=== PATIENT | male | born 1970 | race Caucasian/White ===

== ENCOUNTER 2018-04-16 09:40 | Emergency (ER) | payer OTHER, SELFPAY ==
[2018-04-16 09:48] VITALS: BP 122/80; PULSE 76; RESP 14; TEMP 36.9; O2SAT 98
--- NOTE | 2018-04-16 10:18 | ED.URI ---
HPI - URI/Sore Throat General Chief Complaint: Upper Respiratory Symptoms Stated Complaint: congestion,sinus pressure Time Seen by Provider: 04/16/18 10:09 Source: patient Mode of arrival: ambulatory Limitations: no limitations History of Present Illness HPI Narrative: 47-year-old male here for evaluation approximately 2 weeks of upper respiratory like symptoms to include sinus pressure. He has been taking NyQuil and DayQuil without any improvement. Occasionally takes Claritin. Does have tenderness to palpation over his maxillary sinuses. Does have a cough but nonproductive. No fevers. Related Data Home Medications Medication Instructions Recorded Confirmed lisinopril 20 mg PO DAILY 04/16/18 04/16/18 Previous Rx's Medication Instructions Recorded amoxicillin 500 mg PO BID 5 Days #10 cap 04/16/18 fluticasone [Flonase Allergy 1 spray NASAL DAILY #16 gram 04/16/18 Relief] loratadine [Claritin] 10 mg PO DAILY #30 tab 04/16/18 Allergies Allergy/AdvReac Type Severity Reaction Status Date / Time itraconazole [From Sporanox] Allergy Severe Anaphylaxis Verified 04/16/18 09:51 Review of Systems Constitutional Denies fever(s) and Denies headache(s) ENT Ears, Nose, Mouth, and Throat: Denies dizziness, Denies headache(s), Reports sinus pain, Reports sinus pressure, Denies sore throat, Denies throat swelling and Denies tongue swelling Cardiovascular Denies chest pain and Denies dyspnea Respiratory Reports cough and Denies dyspnea Gastrointestinal Gastrointestinal: Denies abdominal pain Integumentary/Breasts Denies lesions and Denies rash Neurologic Denies dizziness and Denies headache(s) Hematologic/Lymphatic Denies easy bleeding and Denies easy bruising Allergic/Immunologic Denies throat swelling and Denies tongue swelling FORMERLY [facility] Medical History Healthy adult (Acute) Surgical History No pertinent past surgical history (Acute) Social History marital status: Smoking Status: Never smoker Exam Initial Vital Signs Initial Vital Signs: Vital Signs Temperature 98.4 F 04/16/18 09:48 Pulse Rate 76 04/16/18 09:48 Respiratory Rate 14 04/16/18 09:48 Blood Pressure 122/80 04/16/18 09:48 Pulse Oximetry 98 04/16/18 09:48 Const General: cooperative, healthy appearing, comfortable, well developed, well groomed and No acute distress Orientation: alert, awake and oriented x3 HENMT Head: normal to inspection, normocephalic and atraumatic Ears: TM's normal bilaterally Nose: external nose normal Face and sinus: sinuses tender (Tenderness to palpation bilateral maxillary sinus with right greater than left) Neck Lymphatic: No lymphadenopathy Chest Chest: normal inspection of the chest Resp Effort & Inspection: normal respiratory effort Auscultation: clear to auscultation bilaterally Cardio Rate: regular rate Rhythm: regular rhythm Skin Lesions: no lesions Rashes: no rashes Neuro General: alert, awake and oriented x3 Extrem General: normal to inspection and capillary refill normal Psych Appearance: grossly normal and well kempt Course Vital Signs - 8 hr 04/16/18 09:48 04/16/18 11:23 Temperature 98.4 F Pulse Rate 76 79 Respiratory Rate 14 12 Blood Pressure 122/80 Blood Pressure [Right Arm] 127/79 Pulse Oximetry 98 97 MDM - URI/Sore Throat MDM Narrative Medical decision making narrative: Patient without respiratory distress. Lungs clear. Afebrile. Does have tenderness palpation bilateral maxillary sinuses. Occasionally takes decongestants. A long discussion with the patient regarding his symptoms. Informed him that most the time sinusitis is caused by viruses and not bacteria. Informed the patient that my recommendation is that he started himself on a daily decongestant such as Claritin and Flonase to see if this does not improve his symptoms. Will also give a prescription for antibiotics of his symptoms do not improve or worsen in the next several days/week he can start taking the antibiotics. Patient expressed understanding and agreement with plan. Discharge Plan Departure Patient Disposition: Home Clinical Impression: Sinusitis Discharge Date/Time: 04/16/18 11:44 Interventions: ED Discharge Assessment Last Done: 04/16/18 11:43 Instructions: Sinusitis (Alternative Therapy), DI for Sinusitis Activity Restrictions/Additional Instructions: Recommend that you use the decongestants for the next several days likely discussed. If your symptoms do not improve or worsen then start taking the antibiotics. Return to the emergency department for any new or worsening symptoms Prescriptions: New fluticasone [Flonase Allergy Relief] 50 mcg/actuation spray,suspension 1 spray NASAL DAILY Qty: 16 RF: 0 loratadine [Claritin] 10 mg tablet 10 mg PO DAILY Qty: 30 RF: 0 amoxicillin 500 mg capsule 500 mg PO BID 5 Days Qty: 10 RF: 0 No Action lisinopril 20 mg Tablet 20 mg PO DAILY RF: 0
[2018-04-16 11:23] VITALS: BP 127/79; PULSE 79; RESP 12; O2SAT 97
== END 2018-04-16 11:44 | disposition home or self-care (01) ==
PROVIDERS: Emergency Provider Emergency Medicine
DX: J32.9 Chronic sinusitis, unspecified (principal)
CPT/HCPCS: 99282

== ENCOUNTER 2019-01-02 14:59 | Emergency (ER) | payer OTHER, SELFPAY ==
[2019-01-02 15:09] VITALS: BP 141/89; PULSE 69; RESP 14; TEMP 36.1; O2SAT 97
--- NOTE | 2019-01-02 15:28 | ED.WOUNDLAC ---
HPI - Wound/Laceration General Chief Complaint: Wound/Laceration Stated Complaint: hit head, laceration Time Seen by Provider: 01/02/19 15:09 Source: patient Mode of arrival: ambulatory Limitations: no limitations History of Present Illness HPI narrative: 48M non smoker, Td up to date presents with a scalp laceration started just prior to arrival. He hit head, no LOC, no fever or chills. No alcohol or street drugs. No blood thinners. Onset (ago): minute(s) Location: scalp Patient tetanus UTD: Yes Context: accidental Associated symptoms: none Related Data Home Medications Medication Instructions Recorded Confirmed lisinopril 20 mg PO DAILY 04/16/18 08/04/18 Previous Rx's Medication Instructions Recorded fluticasone propionate [Flonase 1 spray NASAL DAILY #16 gram 04/16/18 Allergy Relief] loratadine [Claritin] 10 mg PO DAILY #30 tab 04/16/18 Allergies Allergy/AdvReac Type Severity Reaction Status Date / Time itraconazole [From Sporanox] Allergy Severe Anaphylaxis Verified 08/04/18 09:23 Review of Systems Constitutional Denies chills, Denies fever(s), Denies lethargy and Denies weakness Eyes Denies change in vision, Denies eye discharge, Denies irritation and Denies loss of vision ENT Ears, Nose, Mouth, and Throat: Denies change in voice, Denies neck pain and Denies sore throat Cardiovascular Denies chest pain, Denies irregular heart rhythm, Denies lightheadedness, Denies palpitations, Denies dyspnea, Denies dyspnea on exertion and Denies orthopnea Respiratory Denies cough, Denies dyspnea, Denies dyspnea on exertion and Denies wheezing Gastrointestinal Gastrointestinal: Denies abdominal pain, Denies change in bowel habits, Denies diarrhea, Denies nausea and Denies vomiting Genitourinary Denies hematuria, Denies flank pain, Denies urinary incontinence and Denies urinary urgency Musculoskeletal Denies neck pain Integumentary/Breasts Denies pruritus, Denies erythema, Denies rash and Reports wounds Neurologic Denies confusion, Denies loss of vision and Denies weakness Psychiatric Denies anxiety, Denies confusion, Denies depression, Denies homicidal ideation and Denies suicidal ideation Endocrine Denies palpitations Hematologic/Lymphatic Denies easy bruising Allergic/Immunologic Denies wheezing FOR[facility]LY [facility] Medical History Healthy adult (Acute) Surgical History No pertinent past surgical history (Acute) Social History marital status: Smoking Status: Never smoker Social History marital status: Smoking Status: Never smoker Exam Narrative Exam Narrative: GEN: 48-year-old male appears well with a GCS of 15 AOx3 and in mild distress HEAD: 1.5cm linear laceration, no depressed skull fracture EYES: Pupils are equal, round, and reactive to light and accommodation. Extraoccular muscles are intact bilaterally. There is no subconjunctival hemorrhage or exudate. CHEST: Lungs are clear to auscultation bilaterally and free of wheezes, rales, or rhonchi. Heart rate is regular rhythm, there are no murmurs, clicks, rubs, or gallops. There is no chest wall tenderness. ABD: Abdomen is soft and nontender. There is no guarding or rebound. Bowel sounds are normal in all 4 quadrants. There is no mass or organomegaly. EXT: Full painless ROM of all extremities with no loss of sensation or strength. SKIN: Warm, pink, and dry. No erythema or rash Initial Vital Signs Initial Vital Signs: Vital Signs Temperature 97.0 F L 01/02/19 15:09 Pulse Rate 69 01/02/19 15:09 Respiratory Rate 14 01/02/19 15:09 Blood Pressure 141/89 H 01/02/19 15:09 Pulse Oximetry 97 01/02/19 15:09 Procedures Laceration Repair Laceration 1: Site: scalp Size (cm): 1.5 Description: linear Depth: simple, single layer Local Anesthetic: lidocaine 1% and with epi Amount of anesthesia used (mL): 3 Pre-repair: wound explored Skin layer closed with: olga Number of sutures: 3 Course Orders Ordered: Discontinued Medications Lidocaine/Epinephrine (Xylocaine 1% W/Epi) 4 ml SUBCUT NOW ONE Stop: 01/02/19 15:10 Vital Signs - 8 hr 01/02/19 15:09 Temperature 97.0 F L Pulse Rate 69 Respiratory Rate 14 Blood Pressure 141/89 H Pulse Oximetry 97 Discharge Plan Departure Patient Disposition: Home Clinical Impression: Laceration of scalp Qualifiers: Encounter type: initial encounter Qualified Code(s): S01.01XA - Laceration without foreign body of scalp, initial encounter Discharge Date/Time: 01/02/19 15:31 Interventions: ED Discharge Assessment Last Done: 01/02/19 15:31 Instructions: DI for Laceration Repair of the Scalp Activity Restrictions/Additional Instructions: Please keep the wound clean and dry to the best of your ability. Please monitor for signs of infection such as redness to the skin or increasing pain. Have the sutures removed by your doctor in about 7 days. If you are unable to get into your doctor, we would be happy to remove the sutures in that same timeframe. Prescriptions: No Action lisinopril 20 mg Tablet 20 mg PO DAILY RF: 0 fluticasone propionate [Flonase Allergy Relief] 50 mcg/actuation spray,suspension 1 spray NASAL DAILY Qty: 16 RF: 0 loratadine [Claritin] 10 mg tablet 10 mg PO DAILY Qty: 30 RF: 0
== END 2019-01-02 15:31 | disposition home or self-care (01) ==
PROVIDERS: Emergency Provider Emergency Medicine
DX: S01.01XA Laceration without foreign body of scalp, initial encounter (principal); W22.8XXA Striking against or struck by other objects, initial encounter
CPT/HCPCS: 12001; 99282; 99283

== ENCOUNTER 2019-03-16 21:06 | Emergency (ER) | payer OTHER, SELFPAY ==
--- NOTE | 2019-03-16 21:18 | ED_ITS ---
HPI - General Adult General Chief complaint: Shortness of Breath/Dyspnea Stated complaint: possible decompression syndrome Time Seen by Provider: 03/16/19 21:16 Source: patient and other (flight surgeon) Mode of arrival: Ambulatory Limitations: no limitations History of Present Illness HPI narrative: 48-year-old male comes to the emergency department with complaint of possible decompression syndrome. Patient states he was feeling earlier today. 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 He states that he did have a little bit of trouble fitting his oxygen mask today but did not notice any other issues. He does fly with another individual, he has not been able to contact them but is not her that they have had any issues. Afterwards about 3:00 a.m. today he noticed some tingling and itchy sensation of at the nipple line and above, he then did his fit or physical fitness testing and when exerting himself it made the itching tingling feeling worse and sort of radiated up towards his neck. He denies any real headache, he denies any vision changes, he denies it chest pain or pressure. He states maybe he felt like he had breathe a little bit more on his way in. He denies any nausea no vomiting. No abdominal pain, no issues with bowel movements or urination. He has not appreciated any tingling numbness or weakness in his extremities. patient does have a history of hypertension, he states he did have a cervical fusion several years ago and states that he did have some neuro deficits afterwards he states that he was told it would take several years for these to completely resolve. He states his reflexes are usually quite brisk on his lower extremities. patient has also had sinus surgery after having a blowout from pressure changes in his sinus, he has had shoulder surgery, and hernia surgery. Related Data Home Medications Medication Instructions Recorded Confirmed lisinopril 20 mg PO DAILY 04/16/18 08/04/18 Previous Rx's Medication Instructions Recorded fluticasone propionate [Flonase 1 spray NASAL DAILY #16 gram 04/16/18 Allergy Relief] loratadine [Claritin] 10 mg PO DAILY #30 tab 04/16/18 Allergies Allergy/AdvReac Type Severity Reaction Status Date / Time itraconazole [From Sporanox] Allergy Severe Anaphylaxis Verified 03/16/19 21:21 Review of Systems Review of Systems ROS Unobtainable: All systems reviewed & are unremarkable except as noted in HPI and below Patient History Medical History (Updated 03/17/19 @ 00:14 by Jeni Henriquez DO) Healthy adult (Acute) Hypertension (Acute) Surgical History No pertinent past surgical history (Acute) S/P cervical spinal fusion (Acute) Social History marital status: Smoking Status: Never smoker alcohol intake frequency: 0-2 drinks per day Substance Use Type: does not use Exam Narrative Exam Narrative: GEN: well nourished, well appearing male, alert and oriented x 3, patient appears to be in no acute distress. HEENT: Atraumatic, pupils are equal round reactive to light, extraocular movements are intact, no subconjunctival hemorrhage, nares are clear, TMs are clear with no fluid, there is no conjunctival pallor. Throat is clear without any exudates, erythema, tonsillar enlargement or uvular deviation HEART: Regular rate and rhythm without murmur, clicks, rubs. LUNGS:Lungs clear to auscultation, no wheezes, rales, crackles, chest moves s ymmetrically ABD:bowel sounds normal, soft, non-tender, no guarding, rebound, rigidity, no masses noted, no hepatosplenomegaly :No CVA tenderness MSCL: Non-tender, no muscle atrophy, muscles strength 5/5 upper and lower extremities, full range of motion, normal gait NEURO:CN 2-12 intact, positive for sensation to light touch in all four extremities and face, patient does have some variance in the right lower and upper extremity with 2 point touch he does not always know this, patient also does not always note warm versus hot on the right upper and lower extremity although he can feel the pressure of the objects being used for cold and hot testing, reflexes 2/4 upper extremities, slightly more brisk in the lower extremities but not out of normal range. finger nose finger test normal, heel alvarez test normal, romberg normal Initial Vital Signs Initial Vital Signs: Vital Signs Temperature 97.6 F 03/16/19 21:21 Pulse Rate 77 03/16/19 21:21 Respiratory Rate 15 03/16/19 21:21 Blood Pressure 158/107 H 03/16/19 21:21 Pulse Oximetry 99 03/16/19 21:21 Course Orders Ordered: ED Orders 03/16/19 21:29 Complete Blood Count AUTO DIFF Stat Comprehensive Metabolic Panel Stat Lipase Stat Partial Thromboplastin Time Stat Prothrombin Time INR Stat Troponin & CK Cardiac Panel Stat 03/16/19 21:33 XR chest 1V Stat EKG-12 Lead Stat 03/16/19 22:40 CT cervical spine wo con Stat CT thoracic spine wo con Stat Discontinued Medications Sodium Chloride (Normal Saline 0.9%) 1,000 mls @ 150 mls/hr IV CONT JASPREET Last Admin: 03/16/19 21:58 Dose: Not Given Documented by: MIKAEL Sodium Chloride (Normal Saline 0.9%) 1,000 mls @ 1,000 mls/hr IV BOLUS ONE Stop: 03/16/19 22:52 Last Infusion: 03/16/19 23:17 Dose: 0 mls/hr Documented by: Admin: 03/16/19 22:12 Dose: 1,000 mls/hr Documented by: MIKAEL Vital Signs Vital signs: Vital Signs - 8 hr 03/16/19 21:21 03/16/19 22:00 03/17/19 00:03 Temperature 97.6 F Pulse Rate 77 67 67 Respiratory Rate 15 16 Blood Pressure 158/107 H Blood Pressure [Left Arm] 142/99 H 130/87 Pulse Oximetry 99 99 100 Medical Decision Making Lab Data Lab results reviewed: Yes I reviewed the patient's lab results. Result diagrams: 03/16/19 21:29 03/16/19 21:29 Labs: Lab Results 03/16/19 03/16/19 03/16/19 Range/Units 21:29 21:29 21:29 WBC 10.3 (4.5-11.0) X10^3/uL RBC 4.67 (4.5-5.9) X10^6/uL Hgb 14.5 (13.5-17.5) g/dL Hct 42.4 (41-53) % MCV 90.7 (80-100) fL MCH 31.1 (26-34) PG MCHC 34.3 (30-36) % RDW 12.7 (11.6-14.8) % Plt Count 338 (150-400) X10^3/uL Neut % (Auto) 66.3 (50-75) % Lymph % (Auto) 21.9 L (25-40) % Forest % (Auto) 8.3 (3-14) % Eos % (Auto) 2.3 (2-4) % Baso % (Auto) 1.2 (0-2) % Neut # (Auto) 6800 (3356-3223) /uL Lymph # (Auto) 2300 (3232-6412) /uL Forest # (Auto) 900 (0-900) /uL Eos # (Auto) 200 (0-450) /uL Baso # (Auto) 100 (0-100) /uL PT 10.7 (10.1-12.7) SECONDS INR 0.9 (0.9-1.3) APTT 32 (26.4-36.2) SECONDS Sodium 140 (137-145) mmol/L Potassium 3.8 (3.4-5.1) mmol/L Chloride 106 (98-107) mmol/L Carbon Dioxide 26 (22-32) mmol/L BUN 19 (9-20) mg/dL Creatinine 0.90 (0.66-1.25) mg/dL Estimated GFR > 60.0 (>60) mL/min BUN/Creatinine Ratio 21.1 (6-22) Glucose 126 H (70-100) mg/dL Calcium 9.0 (8.4-10.2) mg/dL Total Bilirubin 0.3 (0.2-1.3) mg/dL AST 27 (17-59) IU/L ALT 25 (21-72) IU/L Alkaline Phosphatase 90 (38-126) U/L Total Creatine Kinase 285 H (55-170) U/L CK-MB (CK-2) 1.45 (<2.37) ng/mL CK-MB (CK-2) Rel Index 0.5 L (1.5-5.0) % Troponin I < 0.012 (0.01-0.034) ng/mL Total Protein 7.5 (6.3-8.2) g/dL Albumin 4.5 (3.5-5.0) g/dL Globulin 3.0 (1.7-4.1) g/dL Albumin/Globulin Ratio 1.5 (1.0-2.8) Lipase 172 (23-300) U/L Imaging Data Chest x-ray: Radiologist's impression: [address] [address] XRay Report Signed Patient: Cristobal Vigil JMR#: [id number] : 1970Acct:[id number] Age/Sex: 48 / MDate of Service: 03/16/19 Loc: ED Accession Number: [id number] Procedure: XR chest 1V Ordering Provider: Jeni Henriquez D.O. PROCEDURE: XR CHEST 1V INDICATIONS: concern for decompression sickness, tingling above nipple li TECHNIQUE: One view of the chest was acquired. COMPARISON: None. FINDINGS: Surgical changes and devices: Cervical fixation hardware is grossly intact. Lungs and pleura: Lungs are clear. No pleural effusions or pneumothorax. Mediastinum: Mediastinal contours appear normal. Heart size is normal. Bones and chest wall: No suspicious bony lesions. Overlying soft tissues appear unremarkable. IMPRESSION: No acute cardiopulmonary findings. Dictated by: Kayla aRo M.D. on 03/16/2019 at 22:00 Approved by: Kayla Rao M.D. on 03/16/2019 at 22:[address]: Radiologist's impression: Moderate spondylolysis. No fracture or destructive process. Moderate degenerative disc disease at midthoracic levels, endplate irregularity and Schmorl's nodes at mid thoracic levels. No sig nificant spinal canal stenosis. Bilateral dependent atelectasis. No pleural effusion or pneumothorax. Mild cardiac enlargement. Visualized abdomen and retroperitoneum are unremarkable. Cspine CT: Radiologist's impression: No acute fracture, satisfactory postoperative changes C6-7. No significant prevertebral soft tissue swelling. No significant spinal canal stenosis. Craniocervical junction and C1-C2 articulations are with out abnormal alignment or asymmetry. Tendon is intact. Normal limited view of the intracranial contents. Right maxillary sinus disease. Soft tissues are unremarkable and lung APCs are without consolidation, pneumothorax or mass. ECG Data Attestation: I personally reviewed and interpreted this ECG as follows: Prior ECG tracings: not available for review Interpretation: Sinus rhythm first-degree AV block rate of 65 P are 213 QRS of 106 and QTC of 386. No ST elevation or depression appreciated. Patient has a Q- wave in lead 3. No priors for comparison. MDM Narrative Medical decision making narrative: Patient's flight surgeon, Dr. Gan is present in the department. Also was consulted with the dive medicine officer Dr. Diaz for the [employer] from [place]. Patient does have some sensory changes on exam but he also states that he had been told he had some neurologic deficits prior with his cervical fusion which would fit the pattern on exam. Patient has generalized sense sensation but does seem to have some difficulty with discerning 2 point sharp as well as hot cold. Otherwise patient's exam is normal he does have a little bit erythema on his upper chest but no other skin changes appreciated. EKG does not show any acute findings, chest x-ray is negative, lab work including CBC, coags are normal, glucose is 126 with normal electrolytes and renal function. total CK is 285. Troponin is negative. Discussed with the hyperbaric dive officer Dr. Ibanez from the [facility] in [place]. We discussed we do not have ability for MRI, we can do CT scan we both discussed that CT is unlikely to find air bubbles or changes but he would like to obtain CT at this time. I did review with Radiology and they felt that it did not require contrast. Dr. Ibanez had reviewed the patient's details from his flight and felt that a decompression sickness was unlikely although some of patient's symptoms were potentially secondary to this. Although patient's right upper and lower extremity symptoms with a T4 tingling were not a typical pattern. With CT be negative plan is for patient to be discharged home with follow-up and they will continue to monitor his care closely. I did recontact with Dr. Gan and he will be in contact with the patient tomorrow morning at 7:30am. Discussed plan with the patient, he is not scheduled to fly over the weekend, will be in touch with his medical team and they are enacting protocal for his care. Discharge Plan Departure Patient Disposition: Home Clinical Impression: Paresthesia Discharge Date/Time: 03/17/19 00:19 Instructions: DI for Decompression Sickness Activity Restrictions/Additional Instructions: Dr. Gan will contact you at 7:30am today (03/17) to check in and re-evaluate how you are doing. Return to the emergency department if you have any other new or concerning symptoms, altered mental status, severe headaches, vision changes, new weakness, numbness, sensation changes, worsening symptoms, passing out, persistent vomiting, loss of bowel or bladder control, shortness of breath, chest pain or pressure or any other new or concerning symptoms. Prescriptions: No Action lisinopril 20 mg Tablet 20 mg PO DAILY RF: 0 fluticasone propionate [Flonase Allergy Relief] 50 mcg/actuation spray,suspension 1 spray NASAL DAILY Qty: 16 RF: 0 loratadine [Claritin] 10 mg tablet 10 mg PO DAILY Qty: 30 RF: 0
[2019-03-16 21:21] VITALS: BP 158/107; PULSE 77; RESP 15; TEMP 36.4; O2SAT 99; BMI 29.3
--- NOTE | 2019-03-16 21:33 | DI.RAD.S_ITS ---
PROCEDURE: XR CHEST 1V INDICATIONS: concern for decompression sickness, tingling above nipple li TECHNIQUE: One view of the chest was acquired. COMPARISON: None. FINDINGS: Surgical changes and devices: Cervical fixation hardware is grossly intact. Lungs and pleura: Lungs are clear. No pleural effusions or pneumothorax. Mediastinum: Mediastinal contours appear normal. Heart size is normal. Bones and chest wall: No suspicious bony lesions. Overlying soft tissues appear unremarkable. IMPRESSION: No acute cardiopulmonary findings. Dictated by: Kayla Rao M.D. on 03/16/2019 at 22:00 Approved by: Kayla Rao M.D. on 03/16/2019 at 22:00
[2019-03-16 21:57] LABS: Add Manual Diff / Slide Review NO; Basophils Absolute Auto 100 /uL (0-100); Basophils Percent Auto 1.2 % (0-2); Eosinophils Absolute Auto 200 /uL (0-450); Eosinophils Percent Auto 2.3 % (2-4); Hematocrit 42.4 % (41-53); Hemoglobin 14.5 g/dL (13.5-17.5); Lymphocytes Absolute Auto 2300 /uL (1100-4500); Lymphocytes Percent Auto 21.9 % (25-40); Mean Corpuscular HGB Conc 34.3 % (30-36); Mean Corpuscular Hemoglobin 31.1 PG (26-34); Mean Corpuscular Volume 90.7 fL (80-100); Monocytes Absolute Auto 900 /uL (0-900); Monocytes Percent Auto 8.3 % (3-14); Neutrophils Absolute Auto 6800 /uL (1500-7000); Neutrophils Percent Auto 66.3 % (50-75); Platelet Count 338 X10^3/uL (150-400); Red Blood Cell Count 4.67 X10^6/uL (4.5-5.9); Red Cell Distribution Width 12.7 % (11.6-14.8); White Blood Cell Count 10.3 X10^3/uL (4.5-11.0)
[2019-03-16 22:00] VITALS: BP 142/99; PULSE 67; RESP 16; O2SAT 99
[2019-03-16 22:02] LABS: INR 0.9 (0.9-1.3); Prothrombin Time 10.7 SECONDS (10.1-12.7)
[2019-03-16 22:05] LABS: PTT Partial Thromboplastin Tim 32 SECONDS (26.4-36.2)
[2019-03-16 22:07] LABS: Alanine Aminotransferase 25 IU/L (21-72); Albumin 4.5 g/dL (3.5-5.0); Albumin Globulin Ratio 1.5 (1.0-2.8); Alkaline Phosphatase 90 U/L (38-126); Aspartate Aminotransferase 27 IU/L (17-59); BUN Creatinine Ratio 21.1 (6-22); Bilirubin Total 0.3 mg/dL (0.2-1.3); Blood Urea Nitrogen 19 mg/dL (9-20); Carbon Dioxide 26 mmol/L (22-32); Chloride 106 mmol/L (98-107); Creatine Kinase 285 U/L (55-170); Estimated Glomerular Filt Rate > 60.0 mL/min (>60); Glucose 126 mg/dL (70-100); HEMOLYSIS < 15 (0-50); Lipase 172 U/L (23-300); Potassium 3.8 mmol/L (3.4-5.1); Sodium 140 mmol/L (137-145); Total Protein 7.5 g/dL (6.3-8.2)
[2019-03-16] MEDS: SODIUM CHLORIDE 0.9% 1,000 ML 1000 ML IV (22:12)
[2019-03-16 22:18] LABS: Troponin I < 0.012 ng/mL (0.01-0.034)
[2019-03-16 22:22] LABS: CKMB % Relative Index 0.5 % (1.5-5.0); Creatine Kinase MB 1.45 ng/mL (<2.37)
--- NOTE | 2019-03-16 22:40 | DI.CT.S_ITS ---
PROCEDURE: CT THORACIC SPINE WO CON INDICATIONS: concern for decompression sickness/t4 tingling above TECHNIQUE: Noncontrast 3 mm thick sections acquired through the region of interest in the thoracic spine. Sagittal and coronal reformats were then constructed. For radiation dose reduction, the following was used: automated exposure control. COMPARISON: None. FINDINGS: Image quality: Excellent. Bones: There is normal anteroposterior bony alignment with minimal dextrocurvature of the upper thoracic spine and minimal levocurvature of the lower and thoracic spine. No acute compression fractures. Moderate multilevel spondylosis of the mid thoracic spine most pronounced at T6-7, T7-8, T8-9, T9-10, and T10-11. No suspicious sclerotic or lytic bony lesions. Central spinal canal is of normal overall caliber. Status post ACDF of the lower cervical spine at C6-7. Soft tissues: No paravertebral masses or hematomas. Visualized posteromedial lungs appear clear. Minimal atherosclerotic calcifications of the coronary arteries. IMPRESSION: 1. Thoracic spine without acute fracture or malalignment. 2. Moderate multilevel thoracic spondylosis most pronounced in the mid thoracic spine. No significant discrepancy with the overnight stocker radiology preliminary report. Dictated by: Serafin Bajwa MD. on 03/17/2019 at 7:37 Approved by: Serafin Bajwa M.D. on 03/17/2019 at 7:46
--- NOTE | 2019-03-16 22:40 | DI.CT.S_ITS ---
PROCEDURE: CT CERVICAL SPINE WO CON INDICATIONS: concern for decompression sickness/t4 tingling above TECHNIQUE: Noncontrast 3 mm thick sections acquired from the skull base to the T4 level. Sagittal and coronal reformats were then constructed. For radiation dose reduction, the following was used: automated exposure control, adjustment of mA and/or kV according to patient size. COMPARISON: None. FINDINGS: Image quality: Excellent. Bones: No acute fractures or dislocations. Specifically, no acute compression fractures of the vertebral bodies. Craniocervical junction is intact. C1-C2 relationship is maintained. Status post anterior cervical discectomy and fusion of C6-7 without evidence for hardware complication. Visualized superior ribs are intact. Soft tissues: Prevertebral soft tissues are normal in thickness. No paravertebral hematomas. No apical pneumothoraces. Mild bilateral maxillary sinus mucosal thickening. IMPRESSION: 1. Cervical spine without acute fracture or malalignment. 2. Postoperative changes from prior anterior cervical discectomy and fusion at C6-C7. 3. Mild bilateral maxillary sinus disease. No significant discrepancy with the mold shifter radiology preliminary report. Dictated by: Serafin Bajwa M.D. on 03/17/2019 at 7:23 Approved by: Serafin Bajwa M.D. on 03/17/2019 at 7:27
[2019-03-17 00:03] VITALS: BP 130/87; PULSE 67; O2SAT 100
== END 2019-03-17 00:19 | disposition home or self-care (01) ==
PROVIDERS: Emergency Provider Emergency Medicine
DX: R20.2 Paresthesia of skin (principal)
CPT/HCPCS: 36415; 71045; 72125; 72128; 80053; 82550; 82553; 83690; 84484; 85025; 85610; 85730; 93005; 99283; 99285